=== PATIENT | female | born 1950 | race Caucasian/White ===

== ENCOUNTER 2017-08-24 15:47 | Inpatient (IN) | payer MEDICARE ==
[2017-08-24] MEDS ORDERED: Oseltamivir 75 MG CAP PO SCH (17:15)
[2017-08-24 17:40] LABS: #Lymphocytes 0.2 thou/uL (1.20-3.40); #Monocytes 0.2 thou/uL (0.11-0.59); #Neutrophils 2.8 thou/uL (1.40-6.50); %Eosinophils 0.2 % (0.0-10.0); %Lymphocytes 7.2 % (21.0-51.0); %Monocytes 5.5 % (0.0-10.0); %Neutrophils 87.1 % (42.0-75.0); Hemoglobin 14.1 g/dL (12.0-16.0); Mean Corpuscular HGB CONC 32.8 g/dL (32.0-36.0); Mean Platelet Volume 8.3 fL (7.4-10.4); Platelet Count 83 thou/uL (130-400); RBC Distribution Width 12.6 % (11.5-14.5); Red Blood Cell (RBC) Count 4.27 mill/uL (4.20-5.40); White Blood Cell (WBC) Count 3.2 thou/uL (4.8-10.8)
[2017-08-24 17:52] LABS: ALT (SGPT) 30 U/L (8-55); AST (SGOT) 75 U/L (5-34); Albumin 2.8 g/dL (3.4-4.8); Alkaline Phosphatase 45 U/L (40-150); Anion Gap 13 mmol/L (10-20); BUN (Urea Nitrogen) 31 mg/dL (9.8-20.1); Bilirubin, Total 0.3 mg/dL (0.2-1.2); Calc. Creatinine Clearance 0 mL/min (70-130); Calcium 7.7 mg/dL (7.8-10.44); Carbon Dioxide 23 mmol/L (23-31); Chloride 96 mmol/L (98-107); Estimated GFR-MDRD 39; Globulin 2.6 g/dL (2.4-3.5); Glucose 109 mg/dL (80-115); Potassium 3.5 mmol/L (3.5-5.1); Protein, Total 5.4 g/dL (6.0-8.3); Sodium 128 mmol/L (136-145)
[2017-08-24 17:57] LABS: Troponin I 0.141 ng/mL (< 0.028)
[2017-08-24 17:57] LABS: MDiff Complete? YES; Macrocytosis SLIGHT = 6-15 cells (100X) (0-5/hpf); PLT Morphology Comment Appears Decreased
[2017-08-24] MEDS ORDERED: Guaifenesin DM 100-10/5 ML UDCUP PO PRN (18:10)
[2017-08-24] MEDS ORDERED: Acetaminophen 325 MG TAB PO PRN (18:10)
--- NOTE | 2017-08-24 19:45 | CON ---
DATE OF CONSULTATION: 08/24/2017 REASON FOR CONSULTATION: Irregular heartbeat. PRIMARY STATION BAGGAGE AGENT: Dr. Chirag Herrera. HISTORY OF PRESENT ILLNESS: Mrs. Muniz is a pleasant 67-year-old white female who comes to the [facility] for weakness. She was seen in the [place] [facility] complaining for weakness, cough, congestion, and fev er. She has been weak for the last 3 or 4 days. She was admitted and was found to have the flu and transported over for further evaluation and care. She also has a history of COPD and was diagnosed w ith COPD exacerbation. When she came to our ER here in [facility] in [place], she had an EKG done th at showed possibly atrial fibrillation, so Cardiology is being consulted for this. Dr. Herrera saw her for leg pain. 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 She currently continues to feel pretty much the same, but denies any lightheadedness. No chest pain, tightness or pressure. PAST MEDICAL HISTORY: 1. COPD. 2. Continues to smoke. 3. Anxiety, depression. 4. Breast cancer in remission. 5. Hypertension. 6. Muscle spasms and pain. PAST SURGICAL HISTORY: Breast cancer surgery, in 1991. SOCIAL HISTORY: She smokes about a pack a day, drinks about 4 beers every day. OUTPATIENT MEDICATIONS: Reviewed. She will bring a list of an updated list. ALLERGIES: No known drug allergies. REVIEW OF SYSTEMS: A 12 point review of systems is done and is all negative unless stated in the his tory of present illness. PHYSICAL EXAMINATION: VITAL SIGNS: Blood pressure 120/58, pulse 101, satting 93% on room air, respiration rate 24, tempera ture 99.0. GENERAL: Awake, alert, oriented x3, in no distress. HEENT: Normocephalic, atraumatic. NECK: Supple. LUNGS: Reduced breath sounds bilaterally. CARDIOVASCULAR: S1, S2, no S3 or S4, distant heart sounds. ABDOMEN: Soft, positive bowel sounds. EXTREMITIES: No edema. SKIN: Warm and dry. LABORATORY WORK: Reviewed. White count of 3.2, hemoglobin 14, hematocrit 42, blood count of 83. Ch emistry with a sodium of 128, potassium of 3.5, chloride of 96, BUN of 31, creatinine 1.34. Troponin I 0.141. Albumin of 2.8. EKG was reviewed. It looks like she is in a multifocal atrial tachycardia. ASSESSMENT AND PLAN: Multifocal atrial tachycardia: Treat underlying condition. Her potassium is b nakia at 3.5 and her sodium is still low at 128. We would treat her possible pneumonia and COPD exac erbation; hopefully, her MAT will get better. No indication for AV tarun blocking agent for any anti coagulation in this setting. Thank you for letting us to participate in the care of your patient. We will follow.
[2017-08-24] MEDS ORDERED: Famotidine 20 MG TAB PO SCH (21:00)
--- NOTE | 2017-08-24 21:25 | HP ---
REASON FOR ADMISSION: COPD exacerbation, suspected new-onset atrial fibrillation, influenza. HISTORY OF PRESENTING ILLNESS: Patient gives history of feeling sick from last Wednesday. She has been coughing and her body/muscles are aching. She had episodes of loose bowel movements from yesterday. She almost had three loose stools yesterday. Cough is essentially dry with no expectoration. She went to [facility] yesterday and tested positive for flu. She was given Tamiflu. She t ook 1 pill so far. Her shortness of breath got worse and patient came back to the emergency room her e. PAST MEDICAL AND SURGICAL HISTORY: History of COPD, hypertension, left breast cancer with mastectomy and reconstruction, has had found some sort of liposuction or another procedure to remove fat from her abdomen at the same time as her mastectomy in 1992 with reconstruction. CURRENT MEDICATIONS: Patient does not recall any of her medications. She knows takes a pill for blo od pressure, another one for restless legs, and takes nebulizers at bedtime. ALLERGIES: No known drug allergies. PERSONAL HISTORY: Smokes one pack a day, drinks 2 [place] every evening. Denies substance abuse. Lives with her . FAMILY HISTORY: Mother has had history of breast cancer. She in her 70s from ID. Father from massive ID in his 70s. CODE STATUS: FULL, power of senior trial attorney is her . REVIEW OF SYSTEMS: The following complete review of systems was negative, unless otherwise mentioned in the HPI or below: Constitutional: Weight loss or gain, ability to conduct usual activities. Skin: Rash, itching. Eyes: Double vision, pain. ENT/Mouth: Nose bleeding, neck stiffness, pain, tenderness. Cardiovascular: Palpitations, dyspnea on exertion, orthopnea. Respiratory: Shortness of breath, wheezing, cough, hemoptysis, fever, or night sweats. Gastrointestinal: Poor appetite, abdominal pain, heartburn, nausea, vomiting, constipation, or diarr hea. Genitourinary: Urgency, frequency, dysuria, nocturia. Musculoskeletal: Pain, swelling. Neurologic/Psychiatric: Anxiety, depression. Allergy/Immunologic: Skin rash, bleeding tendency. PHYSICAL EXAMINATION: GENERAL: The patient is a 67-year-old female who is currently not in any acute distress. VITAL SIGNS: Blood pressure 120/58, pulse 101 per minute, respiratory rate 24 per minute, temperatur e 99 degrees Fahrenheit, saturating 93% on room air. NECK: Supple, no elevated JVD. HEENT: Extraocular muscles intact. Pupils reacting to light. Oral cavity, mucous membranes are dry . No exudates or congestion. CARDIOVASCULAR SYSTEM: S1, S2 heard. Regular rhythm. RESPIRATORY SYSTEM: Air entry 1+ bilateral. Scattered wheezes plus bilateral. ABDOMEN: Soft, bowel sounds heard. No tenderness, rigidity, or guarding. EXTREMITIES: No peripheral edema or calf tenderness. VASCULAR SYSTEM: Peripheral pulses 1+ bilateral. No ischemic ulcerations or gangrene. CENTRAL NERVOUS SYSTEM: No gross focal deficits seen. Patient is alert, awake, oriented well. PSYCHIATRIC SYSTEM: Patient's mood is euthymic. No hallucinations or delusions. LABORATORY AND X-RAY FINDINGS: White count of 3.2, H&H 14 and 42, platelet count is 83, which has be en chronically low with 87% neutrophils, MCV is 101. Sodium 128, chloride 96, BUN 31, creatinine 1.3 , glucose 109. Albumin is 2.8, troponin I is 0.14. EKG done shows sinus rhythm at 98 beats per amador te with questionable atrial fibrillation. She has got Q-waves in V1, V2, V3. CLINICAL IMPRESSION AND PLAN: Patient will be admitted to telemetry for acute chronic obstructive pu lmonary disease exacerbation, supraventricular arrhythmia for further evaluation, demand ischemia. S he also has acute kidney injury and will be placed on normal saline at 50 mL per hour. She will also be on Solu-Medrol 40 mg IV q.6 hourly. We will continue Tamiflu 75 mg twice daily for flu. She kecia l be empirically on levofloxacin 500 mg daily. We will continue her Norvasc, Pepcid as before. Echo with 2D Doppler for LV function will be obtained. We will consult Dr. Urena for Cardiology.
[2017-08-24 21:51] VITALS: BMI 14.2
[2017-08-24] MEDS: Levofloxacin 750 mg/D5W 500 MG in Premix Bag 1 BAG IVPB SCH (22:15)
[2017-08-24] MEDS: Sodium Chloride 0.9% 1,000 ML IV SCH (22:15)
[2017-08-25 05:33] LABS: Anion Gap 12 mmol/L (10-20); BUN (Urea Nitrogen) 25 mg/dL (9.8-20.1); Calc. Creatinine Clearance 33 mL/min (70-130); Calcium 8.1 mg/dL (7.8-10.44); Carbon Dioxide 24 mmol/L (23-31); Chloride 99 mmol/L (98-107); Estimated GFR-MDRD 55; Glucose 142 mg/dL (80-115); Magnesium 1.5 mg/dL (1.6-2.6); Potassium 3.5 mmol/L (3.5-5.1); Sodium 131 mmol/L (136-145)
[2017-08-25 06:35] LABS: Band 7 % (5-11); Hemoglobin 13.2 g/dL (12.0-16.0); Lymphocytes 16 % (21-51); MDiff Complete? YES; Macrocytosis SLIGHT = 6-15 cells (100X) (0-5/hpf); Mean Corpuscular HGB CONC 31.9 g/dL (32.0-36.0); Mean Corpuscular Hemoglobin 32.3 pg (27.0-31.0); Mean Platelet Volume 9.3 fL (7.4-10.4); Metamyelocyte 2 % (0-0); Monocytes 3 % (0-10); Neutrophil 72 % (42-75); PLT Morphology Comment Appears Decreased; Platelet Count 47 thou/uL (130-400); RBC Distribution Width 12.6 % (11.5-14.5); White Blood Cell (WBC) Count 2.3 thou/uL (4.8-10.8)
[2017-08-25] MEDS: Enoxaparin Sodium 40 MG/0.4 ML SYRINGE SC SCH (08:47)
[2017-08-25] MEDS: Oseltamivir 75 MG CAP PO SCH ×2 (08:47→21:19)
[2017-08-25] MEDS: FLUoxetine HCl 20 MG CAP PO SCH (08:47)
[2017-08-25] MEDS ORDERED: Amlodipine 5 MG TAB PO SCH (09:00)
[2017-08-25] MEDS ORDERED: Diltiazem 125 MG in Sodium Chloride 0.9% 100 ML IVPB SCH (11:00)
--- NOTE | 2017-08-25 11:34 | PDOC.PN ---
- Subjective Encounter Start Date: 08/25/17 Encounter Start Time: 09:30 Subjective: feels weak but better -: no c/o chest pain or palp -: is trying to eat her breakfast - Objective Resuscitation Status: Resuscitation Status FULL:Full Resuscitation MAR Reviewed: Yes Vital Signs & Weight: Vital Signs (12 hours) Temp Pulse Resp BP Pulse Ox 08/25/17 08:06 97.5 F L 122 H 16 131/80 97 08/25/17 08:00 97.5 F L 122 H 16 97 08/25/17 07:20 88 20 08/25/17 03:50 98.1 F 93 16 138/72 95 08/25/17 00:57 106 H 14 96 Weight Admit Weight 85 lb 9.6 oz Weight 85 lb 9.6 oz I&O: 08/24/17 08/25/17 08/26/17 06:59 06:59 06:59 Intake Total 595 Output Total 350 Balance 245 Result Diagrams: 08/25/17 04:23 08/25/17 04:23 Phys Exam - Physical Examination HEENT: PERRLA, moist MMs Neck: no JVD, supple Respiratory: no wheezing, no rales mild rhonchi+ Cardiovascular: RRR, no significant murmur Gastrointestinal: soft, non-tender, positive bowel sounds Musculoskeletal: no edema, pulses present Neurological: non-focal, moves all 4 limbs Psychiatric: A&O x 3 Dx/Plan (1) COPD exacerbation Code(s): J44.1 - CHRONIC OBSTRUCTIVE PULMONARY DISEASE W (ACUTE) EXACERBATION Status: Acute (2) Influenza Code(s): J11.1 - FLU DUE TO UNIDENTIFIED INFLUENZA VIRUS W OTH RESP MANIFEST Status: Acute (3) SVT (supraventricular tachycardia) Code(s): I47.1 - SUPRAVENTRICULAR TACHYCARDIA Status: Acute (4) HTN (hypertension) Code(s): I10 - ESSENTIAL (PRIMARY) HYPERTENSION Status: Chronic Qualifiers: Hypertension type: essential hypertension Qualified Code(s): I10 - Essential (primary) hypertension - Plan is on tamiflu, nebs, steroids and empiric levaquin -: has been started on cardizem drip with hr going up to 150's at times -: to ambulate in room -: echo -: may dc iv fluids if eating well and bringing up sputum well * . Review of Systems - Medications/Allergies Allergies/Adverse Reactions: Allergies Allergy/AdvReac Type Severity Reaction Status Date / Time No Known Allergies Allergy Verified 08/24/17 21:34 Medications: Current Medications Acetaminophen (Tylenol) 650 mg PO Q4H PRN PRN Reason: Headache/Fever or Pain Albuterol/Ipratropium (Duoneb) 3 ml NEB [id number] [facility] Last Admin: 08/25/17 07:20 Dose: 3 ml Enoxaparin Sodium (Lovenox) 40 mg SC 0900 [facility] Last Admin: 08/25/17 08:47 Dose: 40 mg Famotidine (Pepcid) 20 mg PO QPM FENG Fluoxetine HCl (Prozac) 20 mg PO DAILY [facility] Last Admin: 08/25/17 08:47 Dose: 20 mg Guaifenesin/Dextromethorphan (Robitussin Dm) 15 ml PO Q4H PRN PRN Reason: Cough Levofloxacin 500 mg/ Device 100 mls @ 100 mls/hr IVPB Q24HR [facility] Last Admin: 08/24/17 22:15 Dose: 100 mls Sodium Chloride (Normal Saline 0.9%) 1,000 mls @ 50 mls/hr IV .Q20H [facility] Last Admin: 08/24/17 22:15 Dose: 1,000 mls Diltiazem HCl 125 mg/ Sodium (Chloride) 125 mls @ 5 mls/hr IVPB INF FENG; 5 MG/ HR PRN Reason: Protocol Methylprednisolone Sodium Succinate (Solu-Medrol) 40 mg IVP Q6HR [facility] Last Admin: 08/25/17 05:42 Dose: 40 mg Oseltamivir Phosphate (Tamiflu) 75 mg PO BID [facility] Stop: 08/29/17 09:01 Last Admin: 08/25/17 08:47 Dose: 75 mg Sodium Chloride (Flush - Normal Saline) 10 ml IVF Q12HR [facility] Last Admin: 08/25/17 08:47 Dose: Not Given Sodium Chloride (Flush - Normal Saline) 10 ml IVF PRN PRN PRN Reason: Saline Flush
--- NOTE | 2017-08-25 12:36 | PDOC.CTH ---
Cardiology Progress Note - Subjective No new complaints. - Objective Vital Signs Temp Pulse Resp BP Pulse Ox 08/25/17 08:06 97.5 F L 122 H 16 131/80 97 08/25/17 08:00 97.5 F L 122 H 16 97 08/25/17 07:20 88 20 08/25/17 03:50 98.1 F 93 16 138/72 95 08/25/17 00:57 106 H 14 96 Admit Weight 85 lb 9.6 oz Weight 85 lb 9.6 oz 08/24/17 08/25/17 08/26/17 06:59 06:59 06:59 Intake Total 595 Output Total 350 Balance 245 - Physical Examination General/Neuro: alert & oriented x3 Neck: no JVD present Lungs: other: (reduced breath sounds. ) Heart: other: (Tachycardic) Abdomen: soft Extremities: other: (no edema.) - Telemetry Telemetry Rhythm: SVT, MAT - Labs Result Diagrams: 08/25/17 04:23 08/25/17 04:23 Troponin/CKMB Troponin I 0.141 ng/mL (< 0.028) H 08/24/17 17:19 - Assessment/Plan 1. COPD exacerbation 2. Influenza 3. MAT 4. SVT HR up to the 190's. PLAN: - For MAT treat underlying condition, (COPD/influenza) - For SVT will start a diltiazem drip for now and will try to transition to PO. - EP consultation for SVT.
--- NOTE | 2017-08-25 13:37 | PQF ---
CLINICAL DOCUMENTATION IMPROVEMENT CLARIFICATION FORM: ICD-10 Updated PLEASE DO AN ADDENDUM TO THE PROGRESS NOTE WITH ANY DOCUMENTATION UPDATES OR ADDITIONS AND CARRY THROUGH TO DC SUMMARY. THANK YOU. DATE: 08/25 ATTN : DR. Jaimie TONG Please exercise your independent, professional judgment in responding to the clarification form. Clinical indicators are provided on the bottom of this form for your review Please check appropriate box(s): [ x ] Hyponatremia [ ] Hypernatremia [ ] Other diagnosis [ ] Unable to determine For continuity of documentation, please document condition throughout progress notes and discharge summary. Thank You. CLINICAL INDICATORS - SIGNS / SYMPTOMS/ LABS are present in the medical record: SODIUM: 128 (ON ADMIT, 08/24) 131 (08/25) CARDIOLOGY CONSULT DOCUMENTATION 08/24: ASSESSMENT & PLAN: MULTIFOCAL ATRIAL TACHYCARDIA: TREAT HER UNDERLYING CONDITION. ...HER SODIUM IS STILL LOW AT 128 RISK FACTORS: DRINKS ALCOHOL DAILY (4 BEERS DAILY) DECREASED PO INTAKE TREATMENT: SERIAL BMP IVF (NS 08/24 - PRESENT) THANK YOU! Yanelis (This form is maintained as a part of the permanent medical record) 2014 [employer]. All Rights Reserved Yanelis Wooten RN, BSN [email or web address] Office: [phone] [facility]
--- NOTE | 2017-08-25 13:45 | PQF ---
CLINICAL DOCUMENTATION IMPROVEMENT CLARIFICATION FORM: ICD-10 Updated PLEASE DO AN ADDENDUM TO THE PROGRESS NOTE WITH ANY DOCUMENTATION UPDATES OR ADDITIONS AND CARRY THROUGH TO DC SUMMARY. THANK YOU. Date: 08/25 ATTN: DR. Jaimie TONG Please exercise your independent, professional judgment in responding to the clarification form. Clinical indicators are provided on the bottom of this form for your review Please check appropriate box(s): [ x ] Protein Calorie Malnutrition: [ ] Mild [ x ] Moderate [ ] Severe [ ] Other Malnutrition (please specify) __ [ ] Underweight without malnutrition [ ] Cachexia [ ] Other diagnosis [ ] Unable to determine CLINICAL INDICATORS - SIGNS / SYMPTOMS / LABS BMI: 14.2 JUNIOR ASSISTANT MANAGER DOCUMENTATION 08/25: ASSESSMENT TRIGGERED FOR LOW BMI. THE PT REPORTS SHE BEGAN FEELING SICK A WEEK AGO & HER APPETITE SLOWLY DECLINED. SHE DID NOT EAT MUCH FOR 4 DAYS PRIOR TO ADMIT. 6% WEIGHT LOSS IN LAST WEEK JUNIOR ASSISTANT MANAGER PHYSICAL ASSESSMENT DOCUMENTATION 08/25: MUSCLE WASTING NOTED TO TEMPLES & CLAVICLES. RISK FACTORS: POOR APPETITE DRINKS ALCOHOL DAILY SMOKES CIGARETTES COPD W/ACTIVE EXACERBATION TREATMENT: NUTRITION ASSESSMENT NUTRITIONAL SUPPLEMENTS (ENSURE ENLIVE BID STARTED 08/25) THANK YOU! Yanelis (This form is maintained as a part of the permanent medical record) 2014 [employer]. All Rights Reserved Yanelis Wooten RN, BSN [email or web address] Office: [phone] [facility]
[2017-08-25] MEDS: Sodium Chloride 0.9% 1,000 ML IV SCH (17:39)
[2017-08-25] MEDS: Famotidine 20 MG TAB PO SCH (21:18)
[2017-08-25] MEDS: Pramipexole Di-HCl 0.125 MG TAB PO SCH (21:18)
[2017-08-25] MEDS: Levofloxacin 750 mg/D5W 500 MG in Premix Bag 1 BAG IVPB SCH (21:19)
--- NOTE | 2017-08-25 23:01 | CON ---
ELECTROPHYSIOLOGIC CONSULTATION REPORT DATE OF CONSULTATION: 08/25/2017 REFERRING PHYSICIAN: Dr. Urena. I am seeing Ms. Muniz at our [facility] Telemetry Floor as an electrophysiologic office 365 consultant. Her problems are: 1. Paroxysmal supraventricular tachycardia. A. 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 2. Acute influenza suspected. 3. Remote history of syncopal spell a couple of years ago without recurrence. 4. History of chronic obstructive pulmonary disease related to smoking. 5. History of hypertension. 6. History of breast cancer in remission post mastectomy in 1991. 7. History of anxiety and depression. ALLERGIES: None noted. MEDICATIONS AT HOME: Included fluoxetine, lorazepam, lisinopril, cyclobenzaprine, amlodipine, pramip exole, Paxil, etodolac and omeprazole. HISTORY: Ms. Muniz is here admitted yesterday with flu-like symptoms. While on monitoring, she note d to be having runs of narrow complex supraventricular tachycardia. Surprisingly, this is mainly sym ptomatic for her. She does not feel her heart racing at this time. On the other hand in the past, s he had some palpitations. For the last couple of years, she has not passed out. No significant dizz iness or loss of consciousness. She sensations. She has no chest pains or angina. She has no PND, orthopnea, lower extremity or fluid overload. She is mostly concerned about body aches, muscle aches and coughing flu-like symptoms. She was found to have some loose bowel movements as well. She is r eceiving Tamiflu now. The rest of 12-point systems otherwise unremarkable with no acute gastrointest inal, musculoskeletal, neuropsychiatric, genitourinary, ear, nose, throat system complaints apart fro m noted above. PAST MEDICAL HISTORY: As above. No prior history of heart disease or heart attacks or issues. SOCIAL HISTORY: Patient denies current EtOH or drug use. She does smoke one pack a day. Lives with her . FAMILY HISTORY: Significant for mother having breast cancer, dying of UT in her 70s. Father dying o f massive UT in his 70s. OBJECTIVE: VITAL SIGNS: Blood pressure is 110/74, heart rate 85, respiration is 20, temperature 96.7 degrees Fa hrenheit. GENERAL: This is an alert and oriented woman in no apparent distress. NECK: Supple. Jugular veins are not distended. CHEST: Coarse, no crackles. CARDIOVASCULAR: Heart sounds are regular to rate and rhythm. No murmur or gallop. ABDOMEN: Benign. Bowel sounds positive. EXTREMITIES: Lower extremities without edema, clubbing or cyanosis. Pulses are adequate. NEUROLOGIC: Patient is nonfocal. MUSCULOSKELETAL: No joint swelling or deformities. SKIN: Without rash. DATABASE: The EKG is reviewed revealing sinus rhythm alternating with supraventricular tachycardia. are seen closely following the QRS suggestive of AV tarun reentrant tachycardia. Chest x-ray from yesterday reveals COPD changes, no acute disease. LABORATORY DATA: The white count is 2.3, hemoglobin is 13.2 and platelet count is 47. Sodium 131, p otassium 3.5, BUN is 25, creatinine 1.0 and troponin I is 0.141. ASSESSMENT AND PLAN: Ms. Muniz is a pleasant 67-year-old woman with a history of chronic obstructive pulmonary disease, smoking, not much heart disease, presenting with a flu-like symptoms. She also n oted to have runs of narrow complex supraventricular tachycardia, which now responding reasonably to IV. Initiate IV diltiazem. 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 I did detail the mechanism of AV tarun reentrant tachycardia and t he possible options of treatment. At this point, we will continue diltiazem hence for viral illness and low platelet counts. After recovery, consideration for ablation procedure should be made. We wi ll follow with you. Thank you for the consult.
[2017-08-26] MEDS: Pramipexole Di-HCl 0.125 MG TAB PO SCH ×4 (01:28→21:23)
[2017-08-26] MEDS: Sodium Chloride 0.9% 1,000 ML IV SCH (05:01)
[2017-08-26] MEDS: Oseltamivir 75 MG CAP PO SCH ×2 (09:11→21:22)
[2017-08-26] MEDS: FLUoxetine HCl 20 MG CAP PO SCH (09:11)
--- NOTE | 2017-08-26 09:16 | PRG ---
DATE OF SERVICE: 08/26/2017 REFERRING PHYSICIAN: Dr. Joshi and Dr. Urena I am seeing Ms. Muniz at our [facility] telemetry floor as a followup. She seems to be doing better today. OBJECTIVE DATA: VITAL SIGNS: Blood pressure is 130/73, heart rate 93, respirations 20, temperature, the patient is afebrile. GENERAL: She is alert and oriented woman in no apparent distress. NECK: Supple. Jugular veins not distended. CHEST: Coarse with few crackles. CARDIOVASCULAR: Heart sounds are regular to rate and rhythm. No murmur or gallop. ABDOMEN: Benign, bowel sounds positive. EXTREMITIES: Lower extremities without edema, clubbing or cyanosis. DATABASE: Telemetry strips reviewed revealing sinus rhythm, occasional PACs, but no more runs of SVT as it was yesterday. LABORATORY DATA: None new noted. ASSESSMENT AND PLAN: 1. Ms. Muniz is a pleasant 67-year-old woman with history of chronic obstructive pulmonary disease, smoking who was admitted with flu and developed runs of supraventricular tachycardia which telemetry strips suggestive of AV tarun reentry tachycardia. Currently well controlled with IV diltiazem, likely would benefit from attempting transitioning her to p.o. diltiazem and leaving her off of the IV drip. I did discuss future plans for potential EP study and ablation procedure. At this point she would like to wait, reasonably so, until she recovers from flu. I will have to see her in our outpatient for this. 2. Influenza on Tamiflu and levofloxacin. 3. Chronic obstructive pulmonary disease exacerbation as per primary team. LENNOXD
[2017-08-26 09:22] LABS: Anion Gap 12 mmol/L (10-20); BUN (Urea Nitrogen) 10 mg/dL (9.8-20.1); Calc. Creatinine Clearance 48 mL/min (70-130); Calcium 8.3 mg/dL (7.8-10.44); Carbon Dioxide 24 mmol/L (23-31); Chloride 98 mmol/L (98-107); Estimated GFR-MDRD 85; Glucose 140 mg/dL (80-115); Potassium 3.2 mmol/L (3.5-5.1); Sodium 131 mmol/L (136-145)
[2017-08-26 09:36] LABS: HBCM Index 0.08 S/CO (0-0.79); HBSAg Index 0.22 S/CO (0-0.99); Hep A IgM AB Non-Reactive (NonReactive); Hep A IgM S/CO 0.09 S/CO (0-0.79); Hep B Surf Ag Non-Reactive S/CO (NonReactive); Hep C IgG Ab Non-Reactive (NonReactive); Hep C Index 0.33 S/CO (0-0.79); Hepatitis B Core IGM Abs Non-Reactive (NonReactive)
[2017-08-26 10:13] LABS: #Lymphocytes 0.5 thou/uL (1.20-3.40); #Monocytes 0.3 thou/uL (0.11-0.59); #Neutrophils 6.5 thou/uL (1.40-6.50); %Lymphocytes 6.4 % (21.0-51.0); %Monocytes 3.5 % (0.0-10.0); %Neutrophils 90.1 % (42.0-75.0); Anisocytosis SLIGHT = 6-15 cells (100X) (0-5/hpf); Hemoglobin 13.1 g/dL (12.0-16.0); Lymphocytes 6 % (21-51); MDiff Complete? YES; Mean Corpuscular HGB CONC 32.8 g/dL (32.0-36.0); Mean Platelet Volume 9.8 fL (7.4-10.4); Monocytes 1 % (0-10); Neutrophil 93 % (42-75); RBC Distribution Width 12.7 % (11.5-14.5); Red Blood Cell (RBC) Count 3.98 mill/uL (4.20-5.40); White Blood Cell (WBC) Count 7.2 thou/uL (4.8-10.8)
[2017-08-26] MEDS: Enoxaparin Sodium 40 MG/0.4 ML SYRINGE SC SCH (11:14)
[2017-08-26] MEDS ORDERED: predniSONE 20 MG TAB PO SCH (11:30)
--- NOTE | 2017-08-26 12:16 | PDOC.PN ---
- Subjective Encounter Start Date: 08/26/17 Encounter Start Time: 09:30 Subjective: no chest pain or palpitations -: is amb in room - Objective Resuscitation Status: Resuscitation Status FULL:Full Resuscitation MAR Reviewed: Yes Vital Signs & Weight: Vital Signs (12 hours) Temp Pulse Resp BP Pulse Ox 08/26/17 11:05 97.5 F L 85 16 125/72 99 08/26/17 08:37 99 08/26/17 08:33 93 20 99 08/26/17 08:00 97.9 F 93 20 08/26/17 07:30 97.9 F 81 18 130/73 98 08/26/17 04:00 98.4 F 87 18 110/58 L 98 Weight Admit Weight 85 lb 9.6 oz Weight 85 lb 9.6 oz I&O: 08/25/17 08/26/17 08/27/17 06:59 06:59 06:59 Intake Total 595 Output Total 350 450 Balance 245 -450 Result Diagrams: 08/26/17 08:33 08/26/17 08:33 Phys Exam - Physical Examination HEENT: PERRLA, moist MMs Neck: no JVD, supple Respiratory: no wheezing, no rales Cardiovascular: RRR, no significant murmur Gastrointestinal: soft, non-tender, positive bowel sounds Musculoskeletal: no edema, pulses present Neurological: non-focal, moves all 4 limbs Psychiatric: normal affect, A&O x 3 Dx/Plan (1) COPD exacerbation Code(s): J44.1 - CHRONIC OBSTRUCTIVE PULMONARY DISEASE W (ACUTE) EXACERBATION Status: Acute Comment: resolving (2) Influenza Code(s): J11.1 - FLU DUE TO UNIDENTIFIED INFLUENZA VIRUS W OTH RESP MANIFEST Status: Acute (3) SVT (supraventricular tachycardia) Code(s): I47.1 - SUPRAVENTRICULAR TACHYCARDIA Status: Acute (4) HTN (hypertension) Code(s): I10 - ESSENTIAL (PRIMARY) HYPERTENSION Status: Chronic Qualifiers: Hypertension type: essential hypertension Qualified Code(s): I10 - Essential (primary) hypertension - Plan oral prednisone, tamiflu and empiric levaquin -: oral cardizem small dose, for outpt work up via EP -: ambulate in hallway -: If her HR remains stable may dc home later this evening -: was on cardizem drip till 11 am * . Review of Systems - Medications/Allergies Allergies/Adverse Reactions: Allergies Allergy/AdvReac Type Severity Reaction Status Date / Time No Known Allergies Allergy Verified 08/24/17 21:34 Medications: Current Medications Acetaminophen (Tylenol) 650 mg PO Q4H PRN PRN Reason: Headache/Fever or Pain Albuterol/Ipratropium (Duoneb) 3 ml NEB [id number] [facility] Last Admin: 08/26/17 08:33 Dose: 3 ml Diltiazem HCl (Cardizem) 30 mg PO ACHS [facility] Last Admin: 08/26/17 11:26 Dose: 30 mg Enoxaparin Sodium (Lovenox) 40 mg SC 0900 [facility] Last Admin: 08/26/17 11:14 Dose: Not Given Famotidine (Pepcid) 20 mg PO QPM [facility] Last Admin: 08/25/17 21:18 Dose: 20 mg Fluoxetine HCl (Prozac) 20 mg PO DAILY [facility] Last Admin: 08/26/17 09:11 Dose: 20 mg Guaifenesin/Dextromethorphan (Robitussin Dm) 15 ml PO Q4H PRN PRN Reason: Cough Levofloxacin (Levaquin) 500 mg PO 0600 [facility] Oseltamivir Phosphate (Tamiflu) 75 mg PO BID [facility] Stop: 08/29/17 09:01 Last Admin: 08/26/17 09:11 Dose: 75 mg Pramipexole Dihydrochloride (Mirapex) 0.125 mg PO TID [facility] Last Admin: 08/26/17 09:11 Dose: 0.125 mg Prednisone (Prednisone) 20 mg PO NOW [facility] Stop: 08/26/17 13:00 Prednisone (Prednisone) 10 mg PO QAM-WM [facility] Sodium Chloride (Flush - Normal Saline) 10 ml IVF Q12HR [facility] Last Admin: 08/26/17 09:13 Dose: 10 ml Sodium Chloride (Flush - Normal Saline) 10 ml IVF PRN PRN PRN Reason: Saline Flush
--- NOTE | 2017-08-26 20:02 | PDOC.CTH ---
Cardiology Progress Note - Subjective Doing much better today. - Objective Vital Signs Temp Pulse Resp BP Pulse Ox 08/26/17 19:17 87 16 97 08/26/17 15:45 97.3 F L 88 20 119/68 98 08/26/17 15:10 92 20 08/26/17 11:05 97.5 F L 85 16 125/72 99 08/26/17 08:37 99 08/26/17 08:33 93 20 99 Admit Weight 85 lb 9.6 oz Weight 85 lb 9.6 oz 08/25/17 08/26/17 08/27/17 06:59 06:59 06:59 Intake Total 595 Output Total 350 450 Balance 245 -450 - Physical Examination General/Neuro: alert & oriented x3, NAD Neck: no JVD present Lungs: unlabored respirations, other: (Distant breath sounds. ) Heart: RRR Abdomen: NT/ND Extremities: other: (no edema.) - Telemetry Telemetry Rhythm: NSR - Labs Result Diagrams: 08/26/17 08:33 08/26/17 08:33 Troponin/CKMB Troponin I 0.141 ng/mL (< 0.028) H 08/24/17 17:19 - Assessment/Plan 1. COPD exacerbation 2. Influenza 3. MAT 4. SVT HR up to the 190's. 5. Hypokalemia PLAN: - For MAT treat underlying condition, (COPD/influenza) - Replace K - Agree with PO diltiazem for SVT. - Outpatient follow up for planned ablation. - May discharge home at any time from cardiac perspective. Will follow up with Dr. Herrera in 1 month. - Will sign off, please call with any questions.
[2017-08-26] MEDS: Famotidine 20 MG TAB PO SCH (21:23)
[2017-08-27] MEDS ORDERED: predniSONE 20 MG TAB PO SCH (08:00)
[2017-08-27 08:15] VITALS: TEMP 98.3
[2017-08-27 08:29] VITALS: BP 118/68
[2017-08-27] MEDS: Enoxaparin Sodium 40 MG/0.4 ML SYRINGE SC SCH (09:09)
[2017-08-27] MEDS: FLUoxetine HCl 20 MG CAP PO SCH (09:10)
[2017-08-27] MEDS: Pramipexole Di-HCl 0.125 MG TAB PO SCH (09:11)
[2017-08-27] MEDS: Oseltamivir 75 MG CAP PO SCH (09:11)
--- NOTE | 2017-08-27 11:54 | PRG ---
DATE OF SERVICE: 08/27/2017 SUBJECTIVE: Ms. Muniz seems to be doing well, in fact she is getting ready to go home, her flu-like symptoms are improving. She has no further arrhythmia symptoms either. OBJECTIVE DATA: VITAL SIGNS: Blood pressure is 118/68, heart rate 94, respirations 18, temperature 97.1 degrees Fahr enheit. GENERAL: Alert and oriented woman in no apparent distress. NECK: Supple. Jugular veins not distended. CHEST: Coarse, no crackles. CARDIOVASCULAR: Heart sounds are regular rate and rhythm. No murmur or gallop. ABDOMEN: Benign. Bowel sounds positive. EXTREMITIES: Lower extremities without edema, clubbing or cyanosis. LABORATORY DATA: None since yesterday. ASSESSMENT AND PLAN: Ms. Muniz is a 67-year-old woman with prior history of chronic obstructive pulm onary disease and hypertension, not much cardiac issues. She was admitted with influenza seropositiv e resisting Tamiflu, but while on telemetry, she developed runs of supraventricular tachycardia with features suggestive of AV tarun reentry tachycardia. It was reasonably well suppressed with IV then p.o. Diltiazem. Now she continues on the p.o. diltiazem without recurrence. We again discussed the options which could also include ablation naturally after recovery from her pn eumonia. We will follow with her in 4-6 weeks, appointment already arranged in our office.
--- NOTE | 2017-08-27 13:09 | PDOC.PN ---
- Subjective Encounter Start Date: 08/27/17 Encounter Start Time: 08:50 Subjective: no sob or palp -: feels good, wants to go home - Objective Resuscitation Status: Resuscitation Status FULL:Full Resuscitation MAR Reviewed: Yes Vital Signs & Weight: Vital Signs (12 hours) Temp Pulse Resp BP Pulse Ox 08/27/17 07:59 98.3 F 95 20 94 L 08/27/17 07:58 96 08/27/17 07:53 95 20 96 08/27/17 07:42 97.1 F L 94 18 118/68 95 08/27/17 05:00 98 18 136/73 94 L Weight Admit Weight 85 lb 9.6 oz Weight 85 lb 9.6 oz I&O: 08/26/17 08/27/17 08/28/17 06:59 06:59 06:59 Intake Total 300 Output Total 450 Balance -450 300 Result Diagrams: 08/26/17 08:33 08/26/17 08:33 Phys Exam - Physical Examination HEENT: PERRLA, moist MMs Neck: no JVD, supple Respiratory: no wheezing, no rales Cardiovascular: RRR, no significant murmur Gastrointestinal: soft, non-tender, positive bowel sounds Musculoskeletal: no edema, pulses present Neurological: non-focal, moves all 4 limbs Psychiatric: A&O x 3 Dx/Plan (1) COPD exacerbation Code(s): J44.1 - CHRONIC OBSTRUCTIVE PULMONARY DISEASE W (ACUTE) EXACERBATION Status: Acute Comment: resolving (2) Influenza Code(s): J11.1 - FLU DUE TO UNIDENTIFIED INFLUENZA VIRUS W OTH RESP MANIFEST Status: Acute (3) SVT (supraventricular tachycardia) Code(s): I47.1 - SUPRAVENTRICULAR TACHYCARDIA Status: Acute (4) HTN (hypertension) Code(s): I10 - ESSENTIAL (PRIMARY) HYPERTENSION Status: Chronic Qualifiers: Hypertension type: essential hypertension Qualified Code(s): I10 - Essential (primary) hypertension - Plan hemostable -: dc pt home -: prednisone taper along with oral cardizem -: to f/u with PCP in 1 week and as adv * .
--- NOTE | 2017-08-28 21:10 | DIS ---
DATE OF ADMISSION: 08/24/2017 DATE OF DISCHARGE: 08/27/2017 DISCHARGE DISPOSITION: Home. PRIMARY DISCHARGE DIAGNOSES: Acute chronic obstructive pulmonary disease exacerbation, resolving; clark praventricular tachycardia likely due to chronic obstructive pulmonary disease flare up, resolving; i nfluenza infection; hypertension. PROCEDURES DONE DURING HOSPITALIZATION: The patient has had an echo with 2D Doppler done which showe d EF of 60% to 65%, grade 2/3 diastolic dysfunction, normal pulmonary artery pressures, nasopharyngea l swab was positive for influenza A antigen. Blood cultures x1, no growth. Discharge H and H of 13 and 40, platelet count is 47,000. Discharge sodium levels are 131. Troponin I is being indeterminat e peaking up to 0.14, CK-MB 18, CK level was 1202. Sodium on admission was 127. BUN and creatinine on admission were 34 and 1.7, with a discharge numbers of 10 and 0.6. Acute hepatitis panel was nega tive. INPATIENT CONSULTS: Dr. Urena for Cardiology and Dr. Tristian Campbell for Electrophysiology. DISCHARGE MEDICATIONS: Norvasc 5 mg daily, Cardizem 30 mg p.o. a.c. and at bedtime, fluoxetine 20 mg daily, DuoNeb q.6 hourly, lisinopril 5 mg p.o. daily, omeprazole 20 mg p.o. daily, Mirapex 0.125 mg p.o. at bedtime, prednisone tapering dose starting at 10 mg p.o. daily for a total of 8 days. ALLERGIES: No known drug allergies. DISCHARGE PLAN: Patient is to follow up with primary care physician in one week and Dr. Urena as ad vised Dr. Tristian Campbell's office for Electrophysiology will call on for followup appointment. BRIEF COURSE DURING HOSPITALIZATION: Patient initially came to ER with complaints of flu-like illnes s with shortness of breath. She was admitted initially for COPD exacerbation and influenza A. She w as also on Tamiflu for her influenza. During the course of her stay, the patient had supraventricula r tachycardia with heart rates going up to 180s. She was placed on Cardizem drip and has been switch ed over to oral Cardizem 30 mg a.c. and at bedtime and has done remarkably well with resolution of he r SVT. Her COPD flare-up is also resolving. She needs to continue prednisone taper as prescribed. She needs to follow up with Dr. Tristian Campbell for further workup if needed for her SVT. She is hemodyn amically stable, ambulating and eating well and is wanting to go home today. Please [facility]fa [facility].
== END 2017-08-27 11:47 | disposition home or self-care (01) | DRG 191 ==
LOC: ERS 15:47 → ERHOLD 17:13 → 2SW 21:01
PROVIDERS: ADMIT Internal Medicine; ATTEND Internal Medicine
DX: J44.1 Chronic obstructive pulmonary disease with (acute) exacerbation (principal); I24.8 Other forms of acute ischemic heart disease; E44.0 Moderate protein-calorie malnutrition; E87.1 Hypo-osmolality and hyponatremia; I47.1 Supraventricular tachycardia; Z68.1 Body mass index [BMI] 19.9 or less, adult; I10 Essential (primary) hypertension; F17.210 Nicotine dependence, cigarettes, uncomplicated; Z85.3 Personal history of malignant neoplasm of breast; E87.6 Hypokalemia; J11.1 Influenza due to unidentified influenza virus with other respiratory manifestations
CPT/HCPCS: 36415; 80048; 80074; 83735; 85025; 93005; 93306; 94640; 94760; 96360; A4216; J1650; J1956; J2920; J7050; J7506; J7620